=== PATIENT | female | born 1955 | race African-American/Black ===

== ENCOUNTER 2019-04-03 17:21 | Emergency (ER) | payer OTHER, SELFPAY ==
[2019-04-03] MEDS ORDERED: HYDROcodone/Acetaminophen 5/325 mg Tablet ONE (17:53)
--- NOTE | 2019-04-03 17:54 | RAD ---
EXAM: 3 views of the right foot HISTORY: Right toe pain with swelling and soreness COMPARISON: None FINDINGS: 3 views of the right foot shows no evidence of acute fracture or dislocation. No soft tissu e swelling is seen. No degenerative changes are present. No osseous erosions are seen. IMPRESSION: No evidence of acute osseous abnormality.
== END 2019-04-03 18:08 | disposition home or self-care (01) ==
LOC: ERS 17:21
DX: M10.9 Gout, unspecified (principal); I10 Essential (primary) hypertension; Z87.891 Personal history of nicotine dependence

== ENCOUNTER 2019-05-05 09:26 | Emergency (ER) | payer SELFPAY ==
[2019-05-05 09:59] LABS: Bilirubin Negative (Negative); Blood, Urine Negative (Negative); Clarity Clear (Clear); Glucose, Urine (Dipstick) Normal (Negative); Leukocyte 75 Leu/uL (Negative); Nitrite Negative (Negative); Protein, Urine (Dipstick) Negative (Neg-Trace); RBC/HPF 0-3 HPF (0-3); Urobilinogen Normal mg/dL (Less than 2); WBC/HPF 0-3 HPF (0-3)
[2019-05-05 10:02] LABS: Hemoglobin 13.3 g/dL (12.0-16.0); Mean Corpuscular HGB CONC 34.2 g/dL (32.0-36.0); Mean Corpuscular Hemoglobin 29.8 pg (27.0-31.0); RBC Distribution Width 12.1 % (11.5-14.5); Red Blood Cell (RBC) Count 4.47 mill/uL (4.20-5.40); White Blood Cell (WBC) Count 4.7 thou/uL (4.8-10.8)
[2019-05-05 10:03] LABS: Bacteria/HPF 1+ HPF (None Seen)
[2019-05-05 10:18] LABS: ALT (SGPT) 59 U/L (8-55); AST (SGOT) 56 U/L (5-34); Albumin 4.4 g/dL (3.4-4.8); Alkaline Phosphatase 92 U/L (40-110); Anion Gap 15 mmol/L (10-20); BUN (Urea Nitrogen) 11 mg/dL (9.8-20.1); Bilirubin, Total 0.3 mg/dL (0.2-1.2); Calc. Creatinine Clearance 0 mL/min (70-130); Carbon Dioxide 21 mmol/L (23-31); Chloride 105 mmol/L (98-107); Estimated GFR-MDRD Greater than 90; Globulin 4.4 g/dL (2.4-3.5); Glucose 99 mg/dL (80-115); Lipase 26 U/L (8-78); Potassium 3.9 mmol/L (3.5-5.1); Protein, Total 8.8 g/dL (6.0-8.3); Sodium 137 mmol/L (136-145)
[2019-05-05 10:22] LABS: #Basophils 0.1 thou/uL (0.0-0.2); #Eosinphils 0.5 thou/uL (0.0-0.7); #Lymphocytes 2.3 thou/uL (1.20-3.40); #Monocytes 0.4 thou/uL (0.11-0.59); #Neutrophils 1.5 thou/uL (1.40-6.50); %Basophils 1.6 % (0.0-1.0); %Eosinophils 10.5 % (0.0-10.0); %Lymphocytes 48.8 % (21.0-51.0); %Monocytes 8.3 % (0.0-10.0); %Neutrophils 30.9 % (42.0-75.0); Giant Platelets SLIGHT; Large Platelets MODERATE; MDiff Complete? YES; Mean Platelet Volume 12.4 fL (7.4-10.4); Platelet Count 88 thou/uL (130-400); Platelet Morphology Comment Appears Decreased
--- NOTE | 2019-05-05 11:06 | CT ---
CT ABDOMEN WITH CONTRAST CT PELVIS WITH CONTRAST: DATE: 05/05/2019 HISTORY: 64-year-old female with left lower quadrant abdominal pain TECHNIQUE: IV injection of iodinated contrast media: Administered Oral contrast media:Not administered FINDINGS: Liver: No focal solid mass. Spleen: No splenomegaly.. Pancreas: No mass or surrounding fat stranding.. Adrenals: No mass.. Kidneys: No hydronephrosis or enhancement abnormalities.. 1.5 cm cyst at the lateral aspect of right mid pole parenchyma. Ureters: No dilation. Bladder: No pathology identified. Abdominal aorta: No aneurysm. Small bowel: No dilation. Colon: No adjacent fat stranding. Appendix: No dilation or adjacent fat stranding.. Free air: None. Free fluid: None. IMPRESSION: 1. No major pathology identified.. 2. Right renal cyst.
[2019-05-05] MEDS ORDERED: ISOVUE-370 76%-LOCM 1 ML ONE (12:35)
== END 2019-05-05 11:45 | disposition home or self-care (01) ==
LOC: ERS 09:26
DX: R10.32 Left lower quadrant pain (principal); R10.815 Periumbilic abdominal tenderness; I10 Essential (primary) hypertension; E78.5 Hyperlipidemia, unspecified; F41.9 Anxiety disorder, unspecified; Z87.891 Personal history of nicotine dependence; Z79.899 Other long term (current) drug therapy
CPT/HCPCS: 36415; 74177; 80053; 81003; 81015; 83690; 85025; 87086

== ENCOUNTER 2020-05-29 09:25 | Emergency (ER) | payer OTHER, SELFPAY ==
[2020-05-29] MEDS ORDERED: Acetaminophen 500 MG TAB ONE (09:52)
== END 2020-05-29 10:45 | disposition home or self-care (01) ==
LOC: ERS 09:25
DX: R51.9 Headache, unspecified (principal); R42 Dizziness and giddiness; E78.5 Hyperlipidemia, unspecified; I10 Essential (primary) hypertension; F41.9 Anxiety disorder, unspecified; Z87.891 Personal history of nicotine dependence; V89.2XXA Person injured in unspecified motor-vehicle accident, traffic, initial encounter
CPT/HCPCS: 99283

== ENCOUNTER 2020-05-30 09:18 | Emergency (ER) | payer SELFPAY ==
[2020-05-30] MEDS ORDERED: Ketorolac Tromethamine 30 MG/ML VIAL ONE (09:58)
--- NOTE | 2020-05-30 10:22 | RAD ---
EXAM: Left shoulder 3 views: HISTORY: Pain following injury COMPARISON: None FINDINGS: Osteoarthrosis and degenerative changes. No acute fracture or dislocation or other significant acute osseous abnormality. IMPRESSION: No significant acute process.
--- NOTE | 2020-05-30 10:24 | RAD ---
Exam: Left wrist 3 views: HISTORY: Pain following injury COMPARISON: None FINDINGS: Lucency overlying the triquetrum bone on the oblique view which is probably just heterogeneous trabec ulation. No evidence for fracture, dislocation, or other significant acute osseous abnormality. IMPRESSION: No significant acute process. Mild degenerative and osteoarthrosis change.
== END 2020-05-30 11:11 | disposition home or self-care (01) ==
LOC: ERS 09:18
DX: M79.18 Myalgia, other site (principal); F41.9 Anxiety disorder, unspecified; I10 Essential (primary) hypertension; Z79.899 Other long term (current) drug therapy
CPT/HCPCS: 96372; J1885

== ENCOUNTER 2020-12-12 13:55 | Emergency (ER) | payer SELFPAY ==
[2020-12-12] MEDS ORDERED: Dexamethasone 4 MG TAB ONE ×2 (14:43→14:46)
[2020-12-12] MEDS ORDERED: Dexamethasone 4 mg/ml Vial ONE (14:46)
== END 2020-12-12 14:58 | disposition home or self-care (01) ==
LOC: ERS 13:55
DX: B34.9 Viral infection, unspecified (principal); I10 Essential (primary) hypertension; E78.5 Hyperlipidemia, unspecified; Z79.899 Other long term (current) drug therapy
CPT/HCPCS: 99283; J1100; J8540

== ENCOUNTER 2020-12-14 09:52 | Emergency (ER) | payer SELFPAY | END 2020-12-14 10:57 | disposition home or self-care (01) | LOC: ERS 09:52 | DX: J15.9 Unspecified bacterial pneumonia (principal); J34.89 Other specified disorders of nose and nasal sinuses; I10 Essential (primary) hypertension; E78.5 Hyperlipidemia, unspecified; Z79.899 Other long term (current) drug therapy | CPT/HCPCS: 71046 ==

== ENCOUNTER 2021-12-27 14:56 | Emergency (ER) | payer OTHER, SELFPAY ==
[2021-12-27] MEDS ORDERED: Boostrix 0.5 ML (Tdap) VIAL ONE (15:43)
== END 2021-12-27 16:54 | disposition home or self-care (01) ==
LOC: ERS 14:56
DX: S61.411A Laceration without foreign body of right hand, initial encounter (principal); I10 Essential (primary) hypertension; E78.5 Hyperlipidemia, unspecified; Z79.899 Other long term (current) drug therapy; W26.0XXA Contact with knife, initial encounter
CPT/HCPCS: 12001; 90471; 90715

== ENCOUNTER 2022-01-06 09:04 | Emergency (ER) | payer OTHER | END 2022-01-06 10:05 | disposition home or self-care (01) | LOC: ERS 09:04 | DX: S61.411D Laceration without foreign body of right hand, subsequent encounter (principal); I10 Essential (primary) hypertension; E78.5 Hyperlipidemia, unspecified; Z79.899 Other long term (current) drug therapy | CPT/HCPCS: 99281 ==

== ENCOUNTER 2022-05-13 00:22 | Emergency (ER) | payer MEDICARE ==
[2022-05-13] MEDS ORDERED: Ketorolac Tromethamine 30 MG/ML VIAL ONE (01:32)
[2022-05-13] MEDS ORDERED: HYDROcodone/Acetaminophen 10/325 mg Tablet ONE (02:23)
[2022-05-13] MEDS ORDERED: Hydrocodone-Acetamin 15 ML UDCUP ONE (02:42)
== END 2022-05-13 02:51 ==
LOC: ERS 00:22
DX: M25.512 Pain in left shoulder (principal); I10 Essential (primary) hypertension; E78.5 Hyperlipidemia, unspecified
CPT/HCPCS: 96372; J1885